=== PATIENT | male | born 2005 | race African-American/Black ===

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

== ENCOUNTER 2024-03-28 14:17 | Outpatient (CLI) | payer OTHER | END 2024-03-28 14:18 | disposition home or self-care (01) | LOC: EEG 14:17 | PROVIDERS: ATTEND Psychiatry & Neurology Neurology | DX: R56.9 Unspecified convulsions (principal) | CPT/HCPCS: 95816 ==

== ENCOUNTER 2024-04-01 19:35 | Emergency (ER) | payer OTHER ==
[2024-04-01] MEDS ORDERED: Acetaminophen 500 MG TAB ONE (20:48)
[2024-04-01] MEDS ORDERED: levETIRAcetam 500 MG (5 mL) VIAL ONE (20:48)
[2024-04-01 21:54] LABS: #Basophils 0.04 10x3/uL (0.0-0.2); %Basophils 0.4 % (0.0-1.0); %Eosinophils 2.2 % (0.0-10.0); %Lymphocytes 7.5 % (28.0-48.0); %Neutrophils 82.4 % (31.0-61.0); Hemoglobin 14.7 g/dL (14.0-18.0); Mean Corpuscular HGB CONC 34.2 g/dL (32.0-36.0); Mean Corpuscular Volume 78.9 fL (78.0-98.0); Mean Platelet Volume 10.3 fL (7.4-10.4); Platelet Count 263 10x3/uL (130-400); RBC Distribution Width 13.4 % (11.5-14.5); Red Blood Cell (RBC) Count 5.45 mill/uL (4.00-5.20)
[2024-04-01 22:00] LABS: Bacteria/HPF None Seen HPF (None Seen); Bilirubin Negative (Negative); Blood, Urine 1+ (Negative); CAUTI Indications for Culture Fever or rigors; Clarity Clear (Clear); Glucose, Urine (Dipstick) Normal (Negative); Ketone, Urine Negative (Negative); Leukocyte Negative Leu/uL (Negative); Nitrite Negative (Negative); Protein, Urine (Dipstick) Negative (Neg-Trace); RBC/HPF 0-3 HPF (0-3); Specific Gravity, Urine 1.006 (1.002-1.036); Squamous Epithelial None Seen HPF (0-3); Urobilinogen Normal mg/dL (Less than 2); WBC/HPF 0-3 HPF (0-3)
[2024-04-01 22:03] LABS: Urine Culture Reflex No No
[2024-04-01 22:06] LABS: Amphetamine Not Detected (NotDetected); Barbiturates Screen Not Detected (NotDetected); Benzodiazepine Screen Not Detected (NotDetected); Cocaine Metabolite Screen Not Detected (NotDetected); Methadone Not Detected (NotDetected); Methamphetamine Not Detected (NotDetected); Opiate Screen Not Detected (NotDetected); Oxycodone Screen Not Detected (NotDetected); Phencyclidine (PCP) Not Detected (NotDetected); THC/Cannabinoid Screen Detected (NotDetected); Tricyclic Screen Not Detected (NotDetected)
[2024-04-01 22:14] LABS: Acetaminophen Less than 10 mcg/mL (Less than 10); Alcohol Less than 10.0 mg/dL (Less than 10); Salicylate Less than 8.0 mg/dL (Less than 8.0)
[2024-04-01 22:18] LABS: ALT (SGPT) 23 U/L (8-55); AST (SGOT) 35 U/L (5-34); Albumin 3.7 g/dL (3.5-5.0); Alkaline Phosphatase 54 U/L (50-130); Anion Gap 21 mmol/L (10-20); BUN (Urea Nitrogen) 6 mg/dL (8.9-20.6); Bilirubin, Total 0.3 mg/dL (0.2-1.2); Calc. Creatinine Clearance 0 mL/min (70-130); Carbon Dioxide 18 mmol/L (22-29); Chloride 105 mmol/L (98-107); Estimated GFR 60; Globulin 3.1 g/dL (2.4-3.5); Glucose 115 mg/dL (70-105); Protein, Total 6.8 g/dL (6.0-8.3); Sodium 140 mmol/L (136-145)
== END 2024-04-02 08:40 ==
LOC: EEVIPCON 19:35 → ERS 19:35
DX: G40.909 Epilepsy, unspecified, not intractable, without status epilepticus (principal); R45.851 Suicidal ideations; Z91.148 Patient's other noncompliance with medication regimen for other reason; F17.290 Nicotine dependence, other tobacco product, uncomplicated; Z79.899 Other long term (current) drug therapy
CPT/HCPCS: 36415; 36416; 80053; 80306; 80307; 81001; 85025; 93005; 96374; J1953

== ENCOUNTER 2024-04-10 13:43 | Outpatient (CLI) | payer OTHER | END 2024-04-10 13:44 | disposition home or self-care (01) | LOC: MRI 13:43 | PROVIDERS: ATTEND Psychiatry & Neurology Neurology | DX: R56.9 Unspecified convulsions (principal); J34.89 Other specified disorders of nose and nasal sinuses | CPT/HCPCS: 70553; 76376 ==

== ENCOUNTER 2024-04-13 18:15 | Emergency (ER) | payer OTHER ==
[2024-04-13] MEDS ORDERED: levETIRAcetam 500 MG (5 mL) VIAL ONE (19:17)
== END 2024-04-13 20:30 | disposition home or self-care (01) ==
LOC: ERS 18:15
DX: G40.909 Epilepsy, unspecified, not intractable, without status epilepticus (principal); F17.290 Nicotine dependence, other tobacco product, uncomplicated; Z79.899 Other long term (current) drug therapy
CPT/HCPCS: 36415; 80177; 96361; 96365; J1953